=== PATIENT | female | born 1945 | race African-American/Black ===

== ENCOUNTER 2016-06-24 19:26 | Emergency (ER) | payer MEDICARE, MEDICAID ==
[~2016-06-24] VITALS: Ht 154.9 cm; Wt 54.0 kg
[~2016-06-24 19:26] MED LIST: CLON0.1T14 PO; FURO40TA5; LISI40TA4 PO; LORA0.5T2 PO; METO50TA5 PO; PARO20TA53 PO
[2016-06-24 20:48] LABS: BASOPHILS % 0.8 % (0.0-2.0); CHLORIDE 105 mEq/L (98-107); EOSINOPHILS % 1.4 % (0.0-5.0); MEAN CORPUSCULAR HEMOGLOBIN 29.8 pg (28.0-32.0); MEAN CORPUSCULAR HGB CONC 33.3 g/dL (31.0-37.0); MEAN CORPUSCULAR VOLUME 89.4 fL (81.0-99.0); MEAN PLATELET VOLUME 8.9 fl (7.4-10.4); MONOCYTES % 8.9 % (2.0-8.0); NEUTROPHILS % 64.9 % (40.0-76.0); PLATELET 233 x1000/uL (130-400); RED BLOOD CELL COUNT 4.69 mill/uL (4.2-5.4); RED CELL DISTRIBUTION WIDTH 14.2 % (11.6-14.6); WHITE BLOOD COUNT 8.5 x1000/uL (4.5-11.0)
[2016-06-24 20:53] LABS: INR 1.2; PARTIAL THROMBOPLASTIN TIME 26.7 sec (24.0-34.0); PROTHROMBIN TIME 12.4 sec
[2016-06-24 20:54] LABS: ALBUMIN 3.4 g/dL (3.4-5.0); ANION GAP 14; CALCIUM 9.3 mg/dL (8.5-10.1); CARBON DIOXIDE 25 mEq/L (21-32); INDEX HEMOLYSI 1 (1-3); INDEX ICTERIC 1 (1-4); INDEX LIPEMIC 1 (1-3); LIPASE 82 IU/L (73-393); UREA NITROGEN BLOOD 16 mg/dL (7-21)
[2016-06-24 21:00] LABS: ALANINE AMINOTRANSFERASE 40 IU/L (13-61); TROPONIN I < 0.02 ng/mL (0.00-0.04); eGFR 38 mL/min (>60)
[2016-06-24 22:30] LABS: CLARITY URINE CLOUDY (CLEAR); COLOR URINE YELLOW (YELLOW); GLUCOSE URINE NEGATIVE (NEGATIVE); KETONES URINE NEGATIVE (NEGATIVE); LEUKOCYTE ESTERASE URINE 3+ (NEGATIVE); NITRITE URINE NEGATIVE (NEGATIVE); OCCULT BLOOD URINE TRACE (NEGATIVE); PH URINE 5.5 (4.5-8.0); PROTEIN URINE NEGATIVE (NEGATIVE); SPECIFIC GRAVITY URINE 1.006 (1.005-1.030); UROBILINOGEN URINE 0.2 E.U./dL (0.2-1.0)
[2016-06-24 22:52] LABS: BACTERIA URINE 1+; RBC URINE 0-2 /hpf (0-2); SQUAMOUS EPITHELIAL CELL URINE 1+ /lpf (RARE/1+)
[2016-06-24 22:53] LABS: WBC URINE 15-25 /hpf (0-2)
[2016-06-24] MEDS ORDERED: LEVOFLOXACIN 500MG TABLET PO ONE (23:15)
[2016-06-24 23:31] VITALS: BP 135/66
== END 2016-06-24 23:33 | disposition home or self-care (01) ==
LOC: ER 19:27
DX: N39.0 Urinary tract infection, site not specified (principal); R42 Dizziness and giddiness; M79.671 Pain in right foot; M79.672 Pain in left foot; R51 Headache; R11.0 Nausea; M10.9 Gout, unspecified; J45.909 Unspecified asthma, uncomplicated; I10 Essential (primary) hypertension; Z90.710 Acquired absence of both cervix and uterus; Z90.49 Acquired absence of other specified parts of digestive tract; Z88.0 Allergy status to penicillin; Z88.2 Allergy status to sulfonamides; Z88.6 Allergy status to analgesic agent
CPT/HCPCS: 36415; 71010; 80053; 81001; 83690; 84484; 85025; 85610; 85730; 93005; 99285

== ENCOUNTER 2018-04-22 13:12 | Inpatient (IN) | payer MEDICARE, MEDICAID ==
[~2018-04-22] VITALS: Ht 167.6 cm; Wt 61.4 kg
[2018-04-22] VITALS (7 sets, daily range): BP systolic 80–113; BP diastolic 43–87
[~2018-04-22 13:12] MED LIST changes: +MELA3TAB PO; +METO-539 PO; -METO50TA5 PO; +MIRT15TA6 PO; +PARO-66 PO; -PARO20TA53 PO
[2018-04-22] MEDS ORDERED: LEVETIRACETAM 500MG PREMIX 100 ML IV ONE (17:15)
[2018-04-22] MEDS ORDERED: NICARDIPINE 100 MG in SODIUM CHLORIDE 0.9% 60 ML IV PRN (17:45)
[2018-04-22] MEDS ORDERED: DEXT 5%/LACTATED RINGERS 1,000 ML IV SCH (17:45)
[2018-04-22 17:55] LABS: BASOPHILS % 0.5 % (0.0-2.0); EOSINOPHILS % 0.6 % (0.0-5.0); HEMATOCRIT. 47.7 % (36.0-48.0); HEMOGLOBIN. 15.9 g/dL (12.0-16.0); LYMPHOCYTES % 18.2 % (20.0-50.0); MEAN CORPUSCULAR HEMOGLOBIN 30.6 pg (28.0-32.0); MEAN CORPUSCULAR VOLUME 91.8 fL (81.0-99.0); MEAN PLATELET VOLUME 9.1 fl (7.4-10.4); MONOCYTES % 9.2 % (2.0-8.0); NEUTROPHILS % 71.5 % (40.0-76.0); PLATELET 339 x1000/uL (130-400); RED BLOOD CELL COUNT 5.19 mill/uL (4.2-5.4); RED CELL DISTRIBUTION WIDTH 14.2 % (11.6-14.6)
[2018-04-22 18:04] LABS: CHLORIDE 99 mEq/L (98-107); INR 1.1; PARTIAL THROMBOPLASTIN TIME 26.3 sec (23.4-31.0); PROTHROMBIN TIME 10.9 sec (9.1-11.1)
[2018-04-22 18:11] LABS: ETHANOL BLOOD < 10 mg/dL
[2018-04-22] MEDS: DEXT 5%/LACTATED RINGERS 1,000 ML IV SCH (18:19)
[2018-04-22] MEDS ORDERED: ONDANSETRON HCL 4MG/2ML INJ IV PRN (21:21)
[2018-04-22] MEDS ORDERED: NITROGLYCERIN 0.4MG TABLET SL SL PRN (21:21)
[2018-04-22] MEDS ORDERED: ACETAMINOPHEN 325MG TABLET PO PRN (21:21)
[2018-04-22] MEDS: DEXAMETHASONE 4MG/ML 1ML VIAL IV SCH (23:31)
[2018-04-23] VITALS (36 sets, daily range): BP systolic 87–136; BP diastolic 51–94
[2018-04-23] MEDS: DEXAMETHASONE 4MG/ML 1ML VIAL IV SCH ×3 (05:37→17:20)
[2018-04-23] MEDS: DEXT 5%/LACTATED RINGERS 1,000 ML IV SCH ×2 (06:49→20:41)
[2018-04-23] MEDS ORDERED: LEVETIRACETAM 500MG PREMIX 100 ML IV SCH (09:00)
[2018-04-23] MEDS: LEVETIRACETAM 500MG in SODIUM CHLORIDE 0.9% 100ML IV SCH ×2 (09:17→20:41)
[2018-04-23] MEDS: PANTOPRAZOLE SODIUM 40 MG/VIAL IV SCH (09:18)
[2018-04-23 10:01] LABS: *AMPHETAMINES SCREEN URINE NEGATIVE (NEGATIVE)
[2018-04-23 10:02] LABS: *BARBITURATES SCREEN URINE NEGATIVE (NEGATIVE); *BENZODIAZEPINES SCREEN URINE NEGATIVE (NEGATIVE); *COCAINE SCREEN URINE NEGATIVE (NEGATIVE); METHADONE URINE SCREEN NEGATIVE (NEGATIVE); OPIATES URINE SCREEN NEGATIVE (NEGATIVE); PHENCYCLIDINE URINE SCREEN NEGATIVE (NEGATIVE)
[2018-04-23 10:03] LABS: CANNABINOID URINE SCREEN PRESUMTIVE POSITIVE (NEGATIVE)
[2018-04-23 10:17] LABS: CLARITY URINE CLEAR (CLEAR); COLOR URINE YELLOW (YELLOW); KETONES URINE NEGATIVE (NEGATIVE); LEUKOCYTE ESTERASE URINE 1+ (NEGATIVE); NITRITE URINE NEGATIVE (NEGATIVE); OCCULT BLOOD URINE TRACE (NEGATIVE); PROTEIN URINE NEGATIVE (NEGATIVE); SPECIFIC GRAVITY URINE 1.009 (1.005-1.030); UROBILINOGEN URINE 0.2 E.U./dL (0.2-1.0)
[2018-04-23] MEDS: MORPHINE SULFATE 4 MG/ML CPJ (NOT FOR IM USE) IV PRN (11:47)
[2018-04-23] MEDS ORDERED: CLONIDINE 0.1MG TABLET PO PRN (15:00)
[2018-04-24] VITALS (45 sets, daily range): BP systolic 113–178; BP diastolic 61–113
[2018-04-24] MEDS: DEXAMETHASONE 4MG/ML 1ML VIAL IV SCH ×4 (00:22→17:07)
[2018-04-24] MEDS: PANTOPRAZOLE SODIUM 40 MG/VIAL IV SCH (08:17)
[2018-04-24] MEDS: LEVETIRACETAM 500MG in SODIUM CHLORIDE 0.9% 100ML IV SCH ×2 (08:17→22:07)
[2018-04-24] MEDS: MORPHINE SULFATE 4 MG/ML CPJ (NOT FOR IM USE) IV PRN ×2 (11:15→17:29)
[2018-04-24 12:10] LABS: BASOPHILS % 0.2 % (0.0-2.0); HEMATOCRIT. 37.8 % (36.0-48.0); HEMOGLOBIN. 12.5 g/dL (12.0-16.0); LYMPHOCYTES % 8.9 % (20.0-50.0); MEAN CORPUSCULAR HEMOGLOBIN 30.5 pg (28.0-32.0); MEAN CORPUSCULAR VOLUME 92.5 fL (81.0-99.0); MEAN PLATELET VOLUME 8.6 fl (7.4-10.4); MONOCYTES % 4.3 % (2.0-8.0); NEUTROPHILS % 86.6 % (40.0-76.0); PLATELET 263 x1000/uL (130-400); RED BLOOD CELL COUNT 4.09 mill/uL (4.2-5.4); RED CELL DISTRIBUTION WIDTH 13.8 % (11.6-14.6)
[2018-04-24 12:22] LABS: CHLORIDE 112 mEq/L (98-107)
[2018-04-24] MEDS: DEXT 5%/LACTATED RINGERS 1,000 ML IV SCH (12:24)
[2018-04-24] MEDS: AMLODIPINE 5MG TABLET PO SCH ×2 (12:24→22:04)
[2018-04-25] MEDS: DEXAMETHASONE 4MG/ML 1ML VIAL IV SCH ×5 (03:11→23:29)
[2018-04-25] MEDS: DEXT 5%/LACTATED RINGERS 1,000 ML IV SCH ×2 (03:12→12:39)
[2018-04-25 04:00] VITALS: BP_SYST 131; BP_SYST 157; BP_DIAS 61; BP_DIAS 73
[2018-04-25 08:00] VITALS: BP 146/83
[2018-04-25] MEDS: PANTOPRAZOLE SODIUM 40 MG/VIAL IV SCH (08:21)
[2018-04-25] MEDS: LEVETIRACETAM 500MG in SODIUM CHLORIDE 0.9% 100ML IV SCH ×2 (08:21→23:21)
[2018-04-25] MEDS: MORPHINE SULFATE 4 MG/ML CPJ (NOT FOR IM USE) IV PRN ×2 (08:23→15:03)
[2018-04-25] MEDS: AMLODIPINE 5MG TABLET PO SCH ×2 (08:23→23:20)
[2018-04-25] MEDS: LISINOPRIL 20MG TABLET PO SCH ×2 (10:36→23:20)
[2018-04-25 12:00] VITALS: BP 140/80
[2018-04-25 16:00] VITALS: BP 146/82
[2018-04-25 20:00] VITALS: BP 140/57
[2018-04-26] VITALS: BP 131/87
[2018-04-26 04:00] VITALS: BP 147/83
[2018-04-26] MEDS: DEXAMETHASONE 4MG/ML 1ML VIAL IV SCH ×4 (07:45→23:51)
[2018-04-26 08:00] VITALS: BP 161/76
[2018-04-26] MEDS: AMLODIPINE 5MG TABLET PO SCH ×2 (09:31→21:31)
[2018-04-26] MEDS: PANTOPRAZOLE SODIUM 40 MG/VIAL IV SCH (09:31)
[2018-04-26] MEDS: LISINOPRIL 20MG TABLET PO SCH ×2 (09:32→21:32)
[2018-04-26] MEDS: LEVETIRACETAM 500MG in SODIUM CHLORIDE 0.9% 100ML IV SCH ×2 (09:38→21:31)
[2018-04-26] MEDS ORDERED: HYDR25TA MT (11:31)
[2018-04-26] MEDS ORDERED: POTA10CA42 MT (11:31)
[2018-04-26] MEDS ORDERED: LORA5TAB8 MT (11:31)
[2018-04-26 12:00] VITALS: BP 138/81
[2018-04-26] MEDS: HYDRALAZINE HCL 50MG TABLET PO SCH ×2 (15:19→23:51)
[2018-04-26] MEDS: MORPHINE SULFATE 4 MG/ML CPJ (NOT FOR IM USE) IV PRN (15:34)
[2018-04-26 16:00] VITALS: BP 147/81
[2018-04-26 20:00] VITALS: BP 150/92
[2018-04-26] MEDS: METOPROLOL TARTRATE 25MG TABLET PO SCH (21:33)
[2018-04-27] VITALS: BP 137/64
[2018-04-27 04:00] VITALS: BP 147/81
[2018-04-27] MEDS: DEXAMETHASONE 4MG/ML 1ML VIAL IV SCH (07:03)
[2018-04-27] MEDS: HYDRALAZINE HCL 50MG TABLET PO SCH (07:04)
[2018-04-27 08:00] VITALS: BP 158/78
[2018-04-27] MEDS: PANTOPRAZOLE SODIUM 40 MG/VIAL IV SCH (09:31)
[2018-04-27] MEDS: LEVETIRACETAM 500MG in SODIUM CHLORIDE 0.9% 100ML IV SCH (09:31)
[2018-04-27] MEDS: AMLODIPINE 5MG TABLET PO SCH (09:32)
[2018-04-27] MEDS: LISINOPRIL 20MG TABLET PO SCH (09:32)
[2018-04-27] MEDS: METOPROLOL TARTRATE 25MG TABLET PO SCH (09:32)
[2018-04-27 11:24] VITALS: BP 158/78
[2018-04-27 12:00] VITALS: BP 152/68
[2018-04-27] MEDS ORDERED: ATORVASTATIN CALCIUM 10MG TABLET PO SCH (21:00)
== END 2018-04-27 12:13 | disposition home or self-care (01) | DRG 64 ==
LOC: ER 13:19 → MICUSO 17:27 → EDBEDREQTM 17:28 → SUPCPDRO 18:19 → ENRESERV 19:42 → MICUSO 04-23 08:00 → 6EST 04-24 16:15
PROVIDERS: ADMIT Internal Medicine; ATTEND Internal Medicine
PROC: 4A00X4Z Measurement of Central Nervous Electrical Activity, External Approach (ICD-10-PCS; principal; 2018-04-24)
DX: I61.9 Nontraumatic intracerebral hemorrhage, unspecified (principal); G93.41 Metabolic encephalopathy; I16.1 Hypertensive emergency; N17.9 Acute kidney failure, unspecified; N18.9 Chronic kidney disease, unspecified; J44.9 Chronic obstructive pulmonary disease, unspecified; E83.52 Hypercalcemia; F32.9 Major depressive disorder, single episode, unspecified; R47.1 Dysarthria and anarthria; M79.672 Pain in left foot; I12.9 Hypertensive chronic kidney disease with stage 1 through stage 4 chronic kidney disease, or unspecified chronic kidney disease; F17.210 Nicotine dependence, cigarettes, uncomplicated; F12.10 Cannabis abuse, uncomplicated; M47.9 Spondylosis, unspecified; R13.10 Dysphagia, unspecified; Z90.49 Acquired absence of other specified parts of digestive tract; Z90.710 Acquired absence of both cervix and uterus; Z88.0 Allergy status to penicillin; Z88.2 Allergy status to sulfonamides; Z88.6 Allergy status to analgesic agent
CPT/HCPCS: 36415; 70544; 70553; 71045; 72131; 73630; 80061; 80305; 83036; 83880; 84484; 92523; 92610; 93005; 93306; 93970; 96365; 96375; 97116; 97162; 97166; 97530; 97535; 99291; C9113; J1100; J1953; J2270; J2405; J7040; J7050

== ENCOUNTER 2018-05-04 19:25 | Inpatient (IN) | payer MEDICARE, MEDICAID ==
[~2018-05-04] VITALS: Ht 154.9 cm; Wt 61.2 kg
[~2018-05-04 19:25] MED LIST changes: +HYDR25TA MT; +LORA5TAB8 MT; +POTA10CA42 MT
[2018-05-04] MEDS ORDERED: ONDANSETRON HCL 4MG/2ML INJ IV STA (20:12)
[2018-05-04 22:03] LABS: BASOPHILS % 0.7 % (0.0-2.0); EOSINOPHILS % 0.8 % (0.0-5.0); HEMATOCRIT. 47.9 % (36.0-48.0); HEMOGLOBIN. 15.7 g/dL (12.0-16.0); LYMPHOCYTES % 41.2 % (20.0-50.0); MEAN CORPUSCULAR HEMOGLOBIN 30.4 pg (28.0-32.0); MEAN CORPUSCULAR VOLUME 92.9 fL (81.0-99.0); MEAN PLATELET VOLUME 9.8 fl (7.4-10.4); MONOCYTES % 8.1 % (2.0-8.0); NEUTROPHILS % 49.2 % (40.0-76.0); PLATELET 260 x1000/uL (130-400); RED BLOOD CELL COUNT 5.16 mill/uL (4.2-5.4); RED CELL DISTRIBUTION WIDTH 13.9 % (11.6-14.6)
[2018-05-04 22:05] LABS: CHLORIDE 101 mEq/L (98-107)
[2018-05-04 22:07] LABS: INR 1.1; PROTHROMBIN TIME 10.7 sec (9.1-11.1)
[2018-05-04 22:10] LABS: ETHANOL BLOOD < 10 mg/dL
[2018-05-05 07:55] LABS: CLARITY URINE CLOUDY (CLEAR); COLOR URINE YELLOW (YELLOW); SPECIFIC GRAVITY URINE 1.016 (1.005-1.030)
[2018-05-05 07:56] LABS: KETONES URINE TRACE (NEGATIVE); OCCULT BLOOD URINE TRACE (NEGATIVE); PROTEIN URINE 1+ (NEGATIVE)
[2018-05-05 07:57] LABS: LEUKOCYTE ESTERASE URINE 3+ (NEGATIVE); NITRITE URINE NEGATIVE (NEGATIVE); UROBILINOGEN URINE 0.2 E.U./dL (0.2-1.0)
[2018-05-05 08:15] LABS: *AMPHETAMINES SCREEN URINE NEGATIVE (NEGATIVE); *BARBITURATES SCREEN URINE NEGATIVE (NEGATIVE); *BENZODIAZEPINES SCREEN URINE NEGATIVE (NEGATIVE); *COCAINE SCREEN URINE NEGATIVE (NEGATIVE); METHADONE URINE SCREEN NEGATIVE (NEGATIVE); OPIATES URINE SCREEN NEGATIVE (NEGATIVE)
[2018-05-05 08:16] LABS: CANNABINOID URINE SCREEN PRESUMTIVE POSITIVE (NEGATIVE); PHENCYCLIDINE URINE SCREEN NEGATIVE (NEGATIVE)
[2018-05-05 09:56] VITALS: BP 90/58
[2018-05-05 10:19] VITALS: BP 90/58
[2018-05-05] MEDS: IPRATROPIUM/ALBUTEROL 0.5-3(2.5)MG/3ML NEB HHN SCH ×2 (10:25→23:40)
[2018-05-05] MEDS ORDERED: IPRATROPIUM/ALBUTEROL 0.5-3(2.5)MG/3ML NEB INH PRN (11:00)
[2018-05-05] MEDS ORDERED: FAMOTIDINE 20MG/2ML VIAL IV SCH (11:00)
[2018-05-05] MEDS ORDERED: DEXTROSE 50% WATER 50ML SYRINGE IV PRN (11:30)
[2018-05-05 12:00] VITALS: BP 115/82
[2018-05-05] MEDS: DOCUSATE SODIUM 250MG CAPSULE PO SCH (12:05)
[2018-05-05] MEDS: ENOXAPARIN 30MG/0.3ML SYR SUBCUT SCH (12:06)
[2018-05-05] MEDS: INSULIN LISPRO 100 UNITS/ML SUBCUT SCH ×3 (13:10→21:00)
[2018-05-05] MEDS: BLOOD SUGAR DIAGNOSTIC STRIP TEST SCH ×3 (13:13→21:13)
[2018-05-05] MEDS: LEVOFLOXACIN 250MG PREMIX 50 ML IV SCH (13:23)
[2018-05-05 16:00] VITALS: BP 88/48
[2018-05-05 18:18] LABS: CREATINE KINASE MB FRACTION 4.4 ng/mL (0.5-3.6)
[2018-05-05 20:00] VITALS: BP 89/41
[2018-05-06] VITALS: BP 90/49
[2018-05-06] MEDS: IPRATROPIUM/ALBUTEROL 0.5-3(2.5)MG/3ML NEB HHN SCH ×6 (00:18→23:48)
[2018-05-06 04:00] VITALS: BP 89/40
[2018-05-06 07:17] LABS: BASOPHILS % 0.3 % (0.0-2.0); EOSINOPHILS % 0.7 % (0.0-5.0); HEMATOCRIT. 42.6 % (36.0-48.0); HEMOGLOBIN. 14.1 g/dL (12.0-16.0); LYMPHOCYTES % 36.6 % (20.0-50.0); MEAN CORPUSCULAR HEMOGLOBIN 30.4 pg (28.0-32.0); MEAN CORPUSCULAR VOLUME 91.9 fL (81.0-99.0); MEAN PLATELET VOLUME 9.1 fl (7.4-10.4); NEUTROPHILS % 53.4 % (40.0-76.0); PLATELET 226 x1000/uL (130-400); RED BLOOD CELL COUNT 4.64 mill/uL (4.2-5.4); RED CELL DISTRIBUTION WIDTH 13.5 % (11.6-14.6)
[2018-05-06 07:18] LABS: CHLORIDE 104 mEq/L (98-107)
[2018-05-06 07:34] LABS: CREATINE KINASE MB FRACTION 4.9 ng/mL (0.5-3.6)
[2018-05-06] MEDS: BLOOD SUGAR DIAGNOSTIC STRIP TEST SCH ×4 (07:57→21:00)
[2018-05-06 08:00] VITALS: BP 136/71
[2018-05-06] MEDS: INSULIN LISPRO 100 UNITS/ML SUBCUT SCH ×4 (08:10→21:00)
[2018-05-06] MEDS: ONDANSETRON HCL 4MG/2ML INJ IV PRN (09:08)
[2018-05-06] MEDS: DOCUSATE SODIUM 250MG CAPSULE PO SCH (09:08)
[2018-05-06] MEDS: ENOXAPARIN 30MG/0.3ML SYR SUBCUT SCH (09:08)
[2018-05-06] MEDS ORDERED: POTASSIUM CHLORIDE 20MEQ TABLET SR PO NR (10:00)
[2018-05-06] MEDS: PANTOPRAZOLE SODIUM 40 MG/VIAL IV SCH (11:18)
[2018-05-06 11:48] VITALS: BP 86/52
[2018-05-06 12:00] VITALS: BP 86/52
[2018-05-06] MEDS ORDERED: DEXT 5%/0.45% NACL KCL 20MEQ/L 1,000 ML IV SCH (12:00)
[2018-05-06 16:00] VITALS: BP 87/49
[2018-05-06] MEDS ORDERED: SODIUM CHLORIDE 0.9% 1,000 ML IV SCH (23:30)
[2018-05-07 00:38] VITALS: BP 90/40
[2018-05-07 06:52] LABS: BASOPHILS % 0.5 % (0.0-2.0); EOSINOPHILS % 0.9 % (0.0-5.0); HEMATOCRIT. 41.2 % (36.0-48.0); HEMOGLOBIN. 13.7 g/dL (12.0-16.0); LYMPHOCYTES % 32.1 % (20.0-50.0); MEAN CORPUSCULAR HEMOGLOBIN 30.5 pg (28.0-32.0); MEAN CORPUSCULAR VOLUME 91.9 fL (81.0-99.0); MEAN PLATELET VOLUME 9.1 fl (7.4-10.4); NEUTROPHILS % 58.5 % (40.0-76.0); PLATELET 222 x1000/uL (130-400); RED BLOOD CELL COUNT 4.48 mill/uL (4.2-5.4); RED CELL DISTRIBUTION WIDTH 13.6 % (11.6-14.6)
[2018-05-07 08:00] VITALS: BP 84/64
[2018-05-07] MEDS: INSULIN LISPRO 100 UNITS/ML SUBCUT SCH ×4 (08:10→21:52)
[2018-05-07] MEDS: BLOOD SUGAR DIAGNOSTIC STRIP TEST SCH ×4 (08:11→21:18)
[2018-05-07] MEDS: PANTOPRAZOLE SODIUM 40 MG/VIAL IV SCH (09:47)
[2018-05-07] MEDS: DOCUSATE SODIUM 250MG CAPSULE PO SCH (09:47)
[2018-05-07] MEDS: ENOXAPARIN 30MG/0.3ML SYR SUBCUT SCH (09:48)
[2018-05-07 12:00] VITALS: BP 95/62
[2018-05-07] MEDS: SODIUM CHLORIDE 0.45% 1,000 ML IV SCH (12:12)
[2018-05-07] MEDS: LEVOFLOXACIN 250MG PREMIX 50 ML IV SCH (12:13)
[2018-05-07 16:00] VITALS: BP 88/60
[2018-05-07 20:00] VITALS: BP 98/59
[2018-05-07] MEDS: IPRATROPIUM/ALBUTEROL 0.5-3(2.5)MG/3ML NEB HHN SCH (20:20)
[2018-05-07] MEDS ORDERED: METRONIDAZOLE 500 MG PREMIX 100 ML IV ONE (22:45)
[2018-05-07 22:52] LABS: PHOSPHORUS 3.6 mg/dL (2.5-4.9)
[2018-05-08] VITALS: BP 98/56
[2018-05-08] MEDS ORDERED: CEFTRIAXONE 1 G PREMIX 50 ML IV SCH
[2018-05-08] MEDS: SODIUM CHLORIDE 0.45% 1,000 ML IV SCH ×3 (00:06→22:02)
[2018-05-08] MEDS ORDERED: METRONIDAZOLE 500 MG PREMIX 100 ML IV SCH (01:00)
[2018-05-08] MEDS: IPRATROPIUM/ALBUTEROL 0.5-3(2.5)MG/3ML NEB HHN SCH ×6 (01:36→20:21)
[2018-05-08 04:00] VITALS: BP 108/58
[2018-05-08] MEDS: ACETAMINOPHEN 325MG TABLET PO PRN ×2 (06:21→16:06)
[2018-05-08 06:46] LABS: BASOPHILS % 0.4 % (0.0-2.0); EOSINOPHILS % 1.2 % (0.0-5.0); HEMATOCRIT. 38.2 % (36.0-48.0); HEMOGLOBIN. 12.9 g/dL (12.0-16.0); MEAN CORPUSCULAR HEMOGLOBIN 30.9 pg (28.0-32.0); MEAN CORPUSCULAR VOLUME 92.1 fL (81.0-99.0); MEAN PLATELET VOLUME 8.9 fl (7.4-10.4); MONOCYTES % 8.9 % (2.0-8.0); NEUTROPHILS % 56.5 % (40.0-76.0); PLATELET 189 x1000/uL (130-400); RED BLOOD CELL COUNT 4.15 mill/uL (4.2-5.4); RED CELL DISTRIBUTION WIDTH 13.4 % (11.6-14.6)
[2018-05-08] MEDS: BLOOD SUGAR DIAGNOSTIC STRIP TEST SCH ×4 (07:46→21:00)
[2018-05-08] MEDS: INSULIN LISPRO 100 UNITS/ML SUBCUT SCH ×4 (07:46→21:00)
[2018-05-08 08:00] VITALS: BP 102/65
[2018-05-08] MEDS: DOCUSATE SODIUM 250MG CAPSULE PO SCH (08:45)
[2018-05-08] MEDS: ENOXAPARIN 30MG/0.3ML SYR SUBCUT SCH (08:45)
[2018-05-08] MEDS: PANTOPRAZOLE SODIUM 40 MG/VIAL IV SCH (08:45)
[2018-05-08 12:00] VITALS: BP 115/66
[2018-05-08 16:00] VITALS: BP 100/56
[2018-05-08] MEDS: METRONIDAZOLE 500 MG PREMIX 100 ML IV SCH ×2 (17:31→22:53)
[2018-05-08 20:00] VITALS: BP 102/67
[2018-05-09] VITALS: BP 93/67
[2018-05-09] MEDS: IPRATROPIUM/ALBUTEROL 0.5-3(2.5)MG/3ML NEB HHN SCH ×2 (00:20→08:05)
[2018-05-09 04:00] VITALS: BP 91/64
[2018-05-09] MEDS: METRONIDAZOLE 500 MG PREMIX 100 ML IV SCH ×2 (05:30→15:40)
[2018-05-09] MEDS: BLOOD SUGAR DIAGNOSTIC STRIP TEST SCH ×2 (05:30→12:47)
[2018-05-09 08:00] VITALS: BP 119/85
[2018-05-09] MEDS: INSULIN LISPRO 100 UNITS/ML SUBCUT SCH ×2 (08:10→12:47)
[2018-05-09] MEDS ORDERED: FAMOTIDINE 20MG TABLET PO SCH (09:00)
[2018-05-09] MEDS: DOCUSATE SODIUM 250MG CAPSULE PO SCH (09:06)
[2018-05-09] MEDS: ENOXAPARIN 30MG/0.3ML SYR SUBCUT SCH (09:07)
[2018-05-09] MEDS: ACETAMINOPHEN 325MG TABLET PO PRN ×2 (09:15→15:39)
[2018-05-09] MEDS: ONDANSETRON HCL 4MG/2ML INJ IV PRN (10:31)
[2018-05-09] MEDS: SODIUM CHLORIDE 0.45% 1,000 ML IV SCH ×2 (10:34→10:37)
[2018-05-09 12:00] VITALS: BP 116/80
[2018-05-09] MEDS: LEVOFLOXACIN 250MG PREMIX 50 ML IV SCH (12:47)
[2018-05-09 16:39] VITALS: BP 132/78
[2018-05-09 19:34] VITALS: BP 119/58
== END 2018-05-09 17:15 | DRG 871 ==
LOC: ER 19:25 → EDBEDREQTM 05-05 02:23 → EDBEDREQ 05-05 02:23 → 7WST 05-05 08:10 → ENRESERV 05-05 08:10
PROVIDERS: ADMIT Internal Medicine Geriatric Medicine; ATTEND Internal Medicine Geriatric Medicine
DX: A41.9 Sepsis, unspecified organism (principal); N17.0 Acute kidney failure with tubular necrosis; N39.0 Urinary tract infection, site not specified; E44.0 Moderate protein-calorie malnutrition; E87.6 Hypokalemia; J44.9 Chronic obstructive pulmonary disease, unspecified; E86.0 Dehydration; N18.9 Chronic kidney disease, unspecified; F10.21 Alcohol dependence, in remission; F12.10 Cannabis abuse, uncomplicated; F17.210 Nicotine dependence, cigarettes, uncomplicated; F43.20 Adjustment disorder, unspecified; Z60.2 Problems related to living alone; I12.9 Hypertensive chronic kidney disease with stage 1 through stage 4 chronic kidney disease, or unspecified chronic kidney disease; N27.1 Small kidney, bilateral; Z79.899 Other long term (current) drug therapy; Z90.49 Acquired absence of other specified parts of digestive tract; Z90.710 Acquired absence of both cervix and uterus; Z68.25 Body mass index [BMI] 25.0-25.9, adult; Z88.0 Allergy status to penicillin; Z88.2 Allergy status to sulfonamides; Z88.8 Allergy status to other drugs, medicaments and biological substances; I69.398 Other sequelae of cerebral infarction
CPT/HCPCS: 36415; 71045; 76770; 80048; 80305; 80320; 82553; 82962; 83605; 83880; 83970; 84100; 84484; 86140; 93005; 93970; 94640; 96374; 97162; 99285; C9113; J1650; J1815; J1956; J2405; J3490; J7040; J7050; J7620; A4315; G0480

== ENCOUNTER 2018-06-05 12:12 | Inpatient (IN) | payer MEDICARE, MEDICAID ==
[~2018-06-05] VITALS: Ht 165.1 cm; Wt 50.8 kg
[~2018-06-05 12:12] MED LIST changes: -CLON0.1T14 PO
[2018-06-05 12:59] LABS: BASOPHILS % 1.2 % (0.0-2.0); EOSINOPHILS % 2.3 % (0.0-5.0); HEMATOCRIT. 42.8 % (36.0-48.0); HEMOGLOBIN. 14.2 g/dL (12.0-16.0); MEAN CORPUSCULAR HEMOGLOBIN 30.2 pg (28.0-32.0); MEAN CORPUSCULAR VOLUME 91.2 fL (81.0-99.0); MEAN PLATELET VOLUME 8.1 fl (7.4-10.4); NEUTROPHILS % 59.5 % (40.0-76.0); PLATELET 294 x1000/uL (130-400)
[2018-06-05 13:06] LABS: CHLORIDE 106 mEq/L (98-107)
[2018-06-05 13:14] LABS: INR 1.1
[2018-06-05] MEDS ORDERED: SODIUM CHLORIDE 0.9% 500 ML IV ONE (14:42)
[2018-06-05] MEDS ORDERED: CLONIDINE 0.1MG TABLET PO ONE (15:00)
[2018-06-05 15:08] LABS: CLARITY URINE CLEAR (CLEAR); COLOR URINE YELLOW (YELLOW); KETONES URINE NEGATIVE (NEGATIVE); LEUKOCYTE ESTERASE URINE NEGATIVE (NEGATIVE); NITRITE URINE NEGATIVE (NEGATIVE); OCCULT BLOOD URINE NEGATIVE (NEGATIVE); PH URINE 6.5 (4.5-8.0); PROTEIN URINE NEGATIVE (NEGATIVE); SPECIFIC GRAVITY URINE 1.005 (1.005-1.030); UROBILINOGEN URINE 0.2 E.U./dL (0.2-1.0)
[2018-06-05] MEDS ORDERED: LORAZEPAM 2MG/ML CPJ IV PRN (19:15)
[2018-06-05] MEDS ORDERED: DOCUSATE SODIUM 100MG CAPSULE PO PRN (19:15)
[2018-06-05] MEDS ORDERED: HYDROCODONE/ACETAMINOPHEN 5/325MG TABLET PO PRN (19:15)
[2018-06-05] MEDS ORDERED: ONDANSETRON HCL 4MG/2ML INJ IV PRN (19:15)
[2018-06-05] MEDS ORDERED: DIPHENHYDRAMINE 50MG/ML VIAL IV PRN (19:15)
[2018-06-05] MEDS ORDERED: GUAIFENESIN 200MG/10ML SUGAR FREE UDC PO PRN (19:15)
[2018-06-05] MEDS ORDERED: IPRATROPIUM/ALBUTEROL 0.5-3(2.5)MG/3ML NEB INH PRN (19:15)
[2018-06-05] MEDS ORDERED: CLONIDINE 0.1MG TABLET PO PRN (19:15)
[2018-06-05] MEDS ORDERED: HYDROMORPHONE HCL/PF 2MG/ML CPJ IV PRN (19:15)
[2018-06-05] MEDS ORDERED: MAGNESIUM/ALUMINUM HYDROXIDE/SIMETHICONE 30ML UDC PO PRN (19:15)
[2018-06-05] MEDS ORDERED: ACETAMINOPHEN 325MG TABLET PO PRN (19:15)
[2018-06-05 20:34] LABS: CHLORIDE 106 mEq/L (98-107)
[2018-06-06] VITALS (7 sets, daily range): BP systolic 123–156; BP diastolic 61–97
[2018-06-06] MEDS ORDERED: NA PHOS,M-B/NA PHOS,DI-BA ENEMA 118ML PR PRN (01:59)
[2018-06-06 06:29] LABS: CHLORIDE 108 mEq/L (98-107)
[2018-06-06 06:35] LABS: EOSINOPHILS % 3.6 % (0.0-5.0); HEMATOCRIT. 43.3 % (36.0-48.0); HEMOGLOBIN. 14.1 g/dL (12.0-16.0); MEAN CORPUSCULAR HEMOGLOBIN 30.2 pg (28.0-32.0); MEAN CORPUSCULAR VOLUME 92.6 fL (81.0-99.0); MONOCYTES % 10.9 % (2.0-8.0); NEUTROPHILS % 52.5 % (40.0-76.0); PLATELET 292 x1000/uL (130-400); RED BLOOD CELL COUNT 4.68 mill/uL (4.2-5.4); RED CELL DISTRIBUTION WIDTH 14.2 % (11.6-14.6)
[2018-06-06 06:39] LABS: LDL CHOLESTEROL 108 mg/dL (5-100); T4 FREE 1.16 ng/dL (0.76-1.46)
[2018-06-06 06:40] LABS: HDL CHOLESTEROL 43 mg/dL (40-59)
[2018-06-06] MEDS: ASPIRIN 81MG EC TABLET PO SCH (09:00)
[2018-06-06] MEDS: METOPROLOL TARTRATE 25MG TABLET PO SCH ×2 (09:00→22:01)
[2018-06-06] MEDS: AMLODIPINE 10MG TABLET PO SCH (09:00)
[2018-06-06] MEDS: LISINOPRIL 20MG TABLET PO SCH (09:00)
[2018-06-07 04:00] VITALS: BP 104/56
[2018-06-07 08:00] VITALS: BP 136/90
[2018-06-07] MEDS: METOPROLOL TARTRATE 25MG TABLET PO SCH (10:18)
[2018-06-07] MEDS: AMLODIPINE 10MG TABLET PO SCH (10:19)
[2018-06-07] MEDS: ASPIRIN 81MG EC TABLET PO SCH (10:19)
[2018-06-07] MEDS: LISINOPRIL 20MG TABLET PO SCH (10:20)
[2018-06-07 12:00] VITALS: BP_SYST 129; BP_SYST 136; BP_DIAS 75; BP_DIAS 90
== END 2018-06-07 16:30 | disposition home or self-care (01) | DRG 305 ==
LOC: ER 12:12 → 6WST 17:36 → EDBEDREQTM 17:38 → EDBEDREQ 17:38 → ENRESERV 21:37
PROVIDERS: ADMIT Internal Medicine; ATTEND Internal Medicine
DX: I16.1 Hypertensive emergency (principal); I69.354 Hemiplegia and hemiparesis following cerebral infarction affecting left non-dominant side; I10 Essential (primary) hypertension; I25.10 Atherosclerotic heart disease of native coronary artery without angina pectoris; M19.90 Unspecified osteoarthritis, unspecified site; F41.9 Anxiety disorder, unspecified; E78.00 Pure hypercholesterolemia, unspecified; R74.0 Nonspecific elevation of levels of transaminase and lactic acid dehydrogenase [LDH]; F32.9 Major depressive disorder, single episode, unspecified; F10.21 Alcohol dependence, in remission; F17.200 Nicotine dependence, unspecified, uncomplicated; J44.9 Chronic obstructive pulmonary disease, unspecified; Z79.899 Other long term (current) drug therapy; Z82.49 Family history of ischemic heart disease and other diseases of the circulatory system; Z90.49 Acquired absence of other specified parts of digestive tract; Z90.710 Acquired absence of both cervix and uterus; Z88.0 Allergy status to penicillin; Z88.2 Allergy status to sulfonamides; Z88.9 Allergy status to unspecified drugs, medicaments and biological substances
CPT/HCPCS: 36415; 71045; 80048; 80061; 84439; 84443; 84484; 93005; 93306; 96360; 96361; 99285; J7030

== ENCOUNTER 2019-02-20 07:14 | Emergency (ER) | payer MEDICARE, MEDICAID ==
[~2019-02-20] VITALS: Ht 162.6 cm; Wt 52.0 kg
[2019-02-20] MEDS ORDERED: ACETAMINOPHEN 325MG TABLET PO ONE (07:45)
[2019-02-20] MEDS ORDERED: OXYCODONE HCL/ACETAMINOPHEN 5/325MG TABLET PO ONE (10:45)
[2019-02-20 12:45] VITALS: BP 129/77
== END 2019-02-20 12:45 | disposition home or self-care (01) ==
LOC: ER 07:59
DX: M25.572 Pain in left ankle and joints of left foot (principal); M25.512 Pain in left shoulder; E78.00 Pure hypercholesterolemia, unspecified; I10 Essential (primary) hypertension; F12.10 Cannabis abuse, uncomplicated; J44.9 Chronic obstructive pulmonary disease, unspecified; I69.354 Hemiplegia and hemiparesis following cerebral infarction affecting left non-dominant side; Z88.0 Allergy status to penicillin; Z88.6 Allergy status to analgesic agent; Z88.2 Allergy status to sulfonamides; Z90.49 Acquired absence of other specified parts of digestive tract; Z90.710 Acquired absence of both cervix and uterus; W18.2XXA Fall in (into) shower or empty bathtub, initial encounter; Y93.E9 Activity, other interior property and clothing maintenance; Y92.012 Bathroom of single-family (private) house as the place of occurrence of the external cause
CPT/HCPCS: 71046; 72170; 73030; 73610; 73630; 99283

== ENCOUNTER 2019-09-24 16:35 | Inpatient (IN) | payer MEDICARE, MEDICAID ==
[~2019-09-24] VITALS: Ht 154.9 cm; Wt 58.3 kg
[~2019-09-24 16:35] MED LIST changes: -MELA3TAB PO; +MELA3TAB63 PO
[2019-09-24] MEDS ORDERED: SODIUM CHLORIDE 0.9% 1000ML BAG (SEPSIS BOLUS) IV ONE (17:00)
[2019-09-24 17:26] LABS: BASOPHILS % 0.7 % (0.0-2.0); EOSINOPHILS % 0.6 % (0.0-5.0); HEMATOCRIT. 37.8 % (36.0-48.0); HEMOGLOBIN. 12.5 g/dL (12.0-16.0); LYMPHOCYTES % 16.5 % (20.0-50.0); MEAN CORPUSCULAR HEMOGLOBIN 29.9 pg (28.0-32.0); MEAN CORPUSCULAR VOLUME 90.3 fL (81.0-99.0); MEAN PLATELET VOLUME 8.5 fl (7.4-10.4); MONOCYTES % 10.1 % (2.0-8.0); NEUTROPHILS % 72.1 % (40.0-76.0); PLATELET 312 x1000/uL (130-400); RED BLOOD CELL COUNT 4.19 mill/uL (4.2-5.4); RED CELL DISTRIBUTION WIDTH 13.6 % (11.6-14.6)
[2019-09-24 17:31] LABS: CHLORIDE 104 mEq/L (98-107)
[2019-09-24 17:34] LABS: INR 1.1; PROTHROMBIN TIME 11.5 sec (9.6-11.0)
[2019-09-24] MEDS ORDERED: LEVOFLOXACIN 500MG PREMIX 100 ML IV ONE (18:45)
[2019-09-24] MEDS ORDERED: MORPHINE SULFATE 4 MG/ML CPJ (NOT FOR IM USE) IV ONE (20:00)
[2019-09-24] MEDS ORDERED: KCL 20MEQ/100ML PREMIX 100 ML IV ONE (20:30)
[2019-09-24 20:44] LABS: CLARITY URINE CLEAR (CLEAR); COLOR URINE YELLOW (YELLOW); KETONES URINE NEGATIVE (NEGATIVE); LEUKOCYTE ESTERASE URINE 1+ (NEGATIVE); NITRITE URINE NEGATIVE (NEGATIVE); OCCULT BLOOD URINE NEGATIVE (NEGATIVE); PH URINE 5.5 (4.5-8.0); PROTEIN URINE 1+ (NEGATIVE); SPECIFIC GRAVITY URINE 1.014 (1.005-1.030)
[2019-09-24] MEDS ORDERED: ONDANSETRON HCL 4MG/2ML INJ IV PRN (20:45)
[2019-09-24] MEDS ORDERED: HYDRALAZINE 20MG/ML VIAL IV PRN (20:45)
[2019-09-24] MEDS ORDERED: LORAZEPAM 2MG/ML CPJ IV PRN (20:45)
[2019-09-24] MEDS ORDERED: MAGNESIUM/ALUMINUM HYDROXIDE/SIMETHICONE 30ML UDC PO PRN (20:45)
[2019-09-24] MEDS ORDERED: DIPHENHYDRAMINE 50MG/ML VIAL IV PRN (20:45)
[2019-09-24] MEDS ORDERED: DOCUSATE SODIUM 100MG CAPSULE PO PRN (20:45)
[2019-09-24] MEDS ORDERED: GUAIFENESIN 200MG/10ML SUGAR FREE UDC PO PRN (20:45)
[2019-09-24] MEDS ORDERED: MORPHINE SULFATE 2 MG/ML CPJ (NOT FOR IM USE) IV PRN (20:45)
[2019-09-24] MEDS ORDERED: CLONIDINE 0.1MG TABLET PO PRN (20:45)
[2019-09-24] MEDS ORDERED: IPRATROPIUM/ALBUTEROL 0.5-3(2.5)MG/3ML NEB HHN PRN (20:45)
[2019-09-24] MEDS: ENOXAPARIN 40MG/0.4ML SYR SUBCUT SCH (21:49)
[2019-09-24] MEDS: SODIUM CHLORIDE 0.9% INJ 3ML FLUSH IVF SCH (22:15)
[2019-09-25] VITALS (7 sets, daily range): BP systolic 96–142; BP diastolic 33–70
[2019-09-25] MEDS: ACETAMINOPHEN 325MG TABLET PO PRN (03:54)
[2019-09-25] MEDS: HYDROCODONE/ACETAMINOPHEN 10/325MG TABLET PO PRN ×3 (04:38→21:44)
[2019-09-25] MEDS: SODIUM CHLORIDE 0.9% INJ 3ML FLUSH IVF SCH ×3 (05:50→21:18)
[2019-09-25] MEDS ORDERED: FAMO20TA8 PO (06:37)
[2019-09-25] MEDS ORDERED: DOCU250C19 PO (06:37)
[2019-09-25] MEDS ORDERED: AMLO10TA80 PO (06:38)
[2019-09-25] MEDS ORDERED: ASPI-1497 PO (06:38)
[2019-09-25 08:57] LABS: BASOPHILS % 0.5 % (0.0-2.0); EOSINOPHILS % 0.9 % (0.0-5.0); HEMATOCRIT. 33.4 % (36.0-48.0); HEMOGLOBIN. 10.8 g/dL (12.0-16.0); LYMPHOCYTES % 22.4 % (20.0-50.0); MEAN CORPUSCULAR HEMOGLOBIN 29.4 pg (28.0-32.0); MEAN CORPUSCULAR VOLUME 90.9 fL (81.0-99.0); MEAN PLATELET VOLUME 8.3 fl (7.4-10.4); MONOCYTES % 11.6 % (2.0-8.0); NEUTROPHILS % 64.6 % (40.0-76.0); PLATELET 288 x1000/uL (130-400); RED BLOOD CELL COUNT 3.67 mill/uL (4.2-5.4); RED CELL DISTRIBUTION WIDTH 13.7 % (11.6-14.6)
[2019-09-25 09:04] LABS: CHLORIDE 111 mEq/L (98-107)
[2019-09-25] MEDS: ALBUTEROL 6.7GM HFA INHALER ORI SCH ×2 (16:30→21:41)
[2019-09-25] MEDS: PREDNISONE 20MG TABLET PO SCH (17:46)
[2019-09-25] MEDS: ENOXAPARIN 40MG/0.4ML SYR SUBCUT SCH (20:26)
[2019-09-26 04:00] VITALS: BP 121/61
[2019-09-26] MEDS: ALBUTEROL 6.7GM HFA INHALER ORI SCH (04:30)
[2019-09-26] MEDS: SODIUM CHLORIDE 0.9% INJ 3ML FLUSH IVF SCH ×3 (05:08→22:00)
[2019-09-26 08:00] VITALS: BP 150/82
[2019-09-26] MEDS: PREDNISONE 20MG TABLET PO SCH ×2 (08:14→17:19)
[2019-09-26] MEDS: HYDROCODONE/ACETAMINOPHEN 10/325MG TABLET PO PRN (10:07)
[2019-09-26 12:00] VITALS: BP 140/87
[2019-09-26 16:00] VITALS: BP 164/89
[2019-09-26 20:00] VITALS: BP 137/69
[2019-09-26] MEDS: ENOXAPARIN 40MG/0.4ML SYR SUBCUT SCH (22:03)
[2019-09-26] MEDS: ACETAMINOPHEN 325MG TABLET PO PRN (22:14)
[2019-09-27] VITALS: BP 133/68
[2019-09-27] MEDS ORDERED: ALBUTEROL (0.083%) 2.5MG/3ML NEB HHN SCH (01:00)
[2019-09-27 04:00] VITALS: BP 133/68
[2019-09-27] MEDS: SODIUM CHLORIDE 0.9% INJ 3ML FLUSH IVF SCH ×2 (06:53→14:37)
[2019-09-27 08:00] VITALS: BP 150/76
[2019-09-27] MEDS: PREDNISONE 20MG TABLET PO SCH ×2 (09:17→17:33)
[2019-09-27 12:00] VITALS: BP 133/68
[2019-09-27 16:00] VITALS: BP 141/75
[2019-09-27 16:31] VITALS: BP 141/75
== END 2019-09-27 17:45 | disposition home or self-care (01) | DRG 193 ==
LOC: ER 16:35 → MICUSO 19:48 → 7WST 09-25 03:18 → 5WST 09-26 09:46
PROVIDERS: ADMIT Internal Medicine; ATTEND Internal Medicine
DX: J18.9 Pneumonia, unspecified organism (principal); J96.00 Acute respiratory failure, unspecified whether with hypoxia or hypercapnia; J44.1 Chronic obstructive pulmonary disease with (acute) exacerbation; E46 Unspecified protein-calorie malnutrition; I69.354 Hemiplegia and hemiparesis following cerebral infarction affecting left non-dominant side; R65.10 Systemic inflammatory response syndrome (SIRS) of non-infectious origin without acute organ dysfunction; J44.0 Chronic obstructive pulmonary disease with (acute) lower respiratory infection; E78.5 Hyperlipidemia, unspecified; E87.6 Hypokalemia; F17.210 Nicotine dependence, cigarettes, uncomplicated; F32.9 Major depressive disorder, single episode, unspecified; I10 Essential (primary) hypertension; M19.90 Unspecified osteoarthritis, unspecified site; Z20.828 Contact with and (suspected) exposure to other viral communicable diseases; E78.00 Pure hypercholesterolemia, unspecified; F41.9 Anxiety disorder, unspecified; M19.011 Primary osteoarthritis, right shoulder; M19.012 Primary osteoarthritis, left shoulder; F12.90 Cannabis use, unspecified, uncomplicated; Z60.2 Problems related to living alone; R26.81 Unsteadiness on feet; Z90.49 Acquired absence of other specified parts of digestive tract; Z90.710 Acquired absence of both cervix and uterus; Z68.24 Body mass index [BMI] 24.0-24.9, adult; Z79.899 Other long term (current) drug therapy; Z88.0 Allergy status to penicillin; Z88.2 Allergy status to sulfonamides; Z88.8 Allergy status to other drugs, medicaments and biological substances; M79.662 Pain in left lower leg
CPT/HCPCS: 36415; 71045; 73030; 73560; 73590; 73620; 73721; 80053; 81003; 83605; 83880; 84145; 84484; 85025; 93005; 93970; 96374; 97116; 97162; 99285; J1650; J1956; J2270; J3480; J7030; J7512; U0003-CS

== ENCOUNTER 2021-11-13 17:20 | Emergency (ER) | payer MEDICARE, MEDICAID ==
[~2021-11-13] VITALS: Ht 152.4 cm; Wt 64.0 kg
[~2021-11-13 17:20] MED LIST changes: +AMLO10TA80 PO; +ASPI-1497 PO; +DOCU250C19 PO; +FAMO20TA8 PO; +LISI40TA13 PO; -LISI40TA4 PO; +MELA3TAB40 PO; -MELA3TAB63 PO; +MIRT-89 PO; -MIRT15TA6 PO
[2021-11-13 17:32] VITALS: BP 149/83
[2021-11-13] MEDS ORDERED: MUPI22OI2 TP (23:51)
[2021-11-13] MEDS ORDERED: CETI-338 PO (23:51)
[2021-11-13] MEDS ORDERED: DOXY100T28 PO (23:51)
== END 2021-11-13 23:52 | disposition home or self-care (01) ==
LOC: ER 17:20
DX: L73.9 Follicular disorder, unspecified (principal); R23.4 Changes in skin texture; I10 Essential (primary) hypertension; J45.909 Unspecified asthma, uncomplicated; J44.9 Chronic obstructive pulmonary disease, unspecified; E78.00 Pure hypercholesterolemia, unspecified; Z86.73 Personal history of transient ischemic attack (TIA), and cerebral infarction without residual deficits; Z90.49 Acquired absence of other specified parts of digestive tract; Z90.710 Acquired absence of both cervix and uterus; Z79.82 Long term (current) use of aspirin; Z88.6 Allergy status to analgesic agent; Z88.2 Allergy status to sulfonamides; Z88.0 Allergy status to penicillin
CPT/HCPCS: 99283

== ENCOUNTER 2022-01-18 08:47 | Inpatient (IN) | payer MEDICARE, MEDICAID ==
[~2022-01-18] VITALS: Ht 165.1 cm; Wt 58.5 kg
[~2022-01-18 08:47] MED LIST changes: +CETI-338 PO; +DOXY100T28 PO; +MUPI22OI2 TP
[2022-01-18 10:40] LABS: BASOPHILS % 0.8 % (0.0-2.0); EOSINOPHILS % 1.5 % (0.0-5.0); HEMOGLOBIN. 13.6 g/dL (12.0-16.0); LYMPHOCYTES % 23.7 % (20.0-50.0); MEAN CORPUSCULAR HEMOGLOBIN 30.4 pg (28.0-32.0); MEAN CORPUSCULAR VOLUME 91.8 fL (81.0-99.0); MEAN PLATELET VOLUME 8.8 fl (7.4-10.4); MONOCYTES % 9.7 % (2.0-8.0); NEUTROPHILS % 64.3 % (40.0-76.0); PLATELET 275 x1000/uL (130-400); RED BLOOD CELL COUNT 4.46 mill/uL (4.2-5.4); RED CELL DISTRIBUTION WIDTH 14.7 % (11.6-14.6)
[2022-01-18 10:48] LABS: CHLORIDE 105 mEq/L (98-107)
[2022-01-18 12:52] LABS: INR 1.1; PROTHROMBIN TIME 11.6 sec (9.6-11.0)
[2022-01-18] MEDS ORDERED: ACETAMINOPHEN 325MG TABLET PO PRN ×2 (13:45)
[2022-01-18] MEDS ORDERED: IPRATROPIUM/ALBUTEROL 0.5-3(2.5)MG/3ML NEB NEB PRN (13:45)
[2022-01-18] MEDS ORDERED: DOCUSATE SODIUM 100MG CAPSULE PO PRN (13:45)
[2022-01-18] MEDS ORDERED: GUAIFENESIN 200MG/10ML SUGAR FREE UDC PO PRN (13:45)
[2022-01-18] MEDS ORDERED: ONDANSETRON HCL 4MG/2ML INJ IV PRN (13:45)
[2022-01-18] MEDS ORDERED: CLONIDINE 0.1MG TABLET PO PRN (13:45)
[2022-01-18 14:00] VITALS: BP 132/82
[2022-01-18 16:00] VITALS: BP 127/65
[2022-01-18 16:07] VITALS: BP 132/82
[2022-01-18] MEDS: ENOXAPARIN 40MG/0.4ML SYR SUBCUT SCH (17:08)
[2022-01-18 20:00] VITALS: BP 122/67
[2022-01-19] VITALS: BP 119/65
[2022-01-19 04:00] VITALS: BP_SYST 124; BP_SYST 129; BP_SYST 131; BP_DIAS 68; BP_DIAS 70; BP_DIAS 76
[2022-01-19 07:02] LABS: BASOPHILS % 0.7 % (0.0-2.0); EOSINOPHILS % 1.5 % (0.0-5.0); HEMATOCRIT. 38.5 % (36.0-48.0); HEMOGLOBIN. 12.7 g/dL (12.0-16.0); LYMPHOCYTES % 45.5 % (20.0-50.0); MEAN CORPUSCULAR HEMOGLOBIN 30.1 pg (28.0-32.0); MEAN CORPUSCULAR VOLUME 90.9 fL (81.0-99.0); MONOCYTES % 13.3 % (2.0-8.0); RED BLOOD CELL COUNT 4.23 mill/uL (4.2-5.4); RED CELL DISTRIBUTION WIDTH 14.3 % (11.6-14.6)
[2022-01-19 08:00] VITALS: BP_SYST 135; BP_SYST 142; BP_SYST 143; BP_DIAS 70; BP_DIAS 76; BP_DIAS 84
[2022-01-19 08:55] LABS: CHLORIDE 106 mEq/L (98-107)
[2022-01-19 09:00] LABS: PHOSPHORUS 2.4 mg/dL (2.5-4.9)
[2022-01-19 10:05] LABS: PLATELET 240 x1000/uL (130-400)
[2022-01-19 12:00] VITALS: BP_SYST 123; BP_SYST 145; BP_SYST 158; BP_DIAS 60; BP_DIAS 85; BP_DIAS 91
[2022-01-19] MEDS: ENOXAPARIN 40MG/0.4ML SYR SUBCUT SCH (14:30)
[2022-01-19 16:00] VITALS: BP 103/73
[2022-01-19 20:00] VITALS: BP 129/72
[2022-01-19] MEDS ORDERED: MAGNESIUM OXIDE 400MG TABLET PO NR (21:15)
[2022-01-19] MEDS ORDERED: POTASSIUM-SODIUM PHOSPHATE POWDER PACKET PO NR (21:15)
[2022-01-19] MEDS: DICLOFENAC SODIUM 1% GEL 50GM TOP SCH (22:00)
[2022-01-19] MEDS: HYDROCODONE/ACETAMINOPHEN 5/325MG TABLET PO PRN (22:17)
[2022-01-20] VITALS: BP 118/78
[2022-01-20 04:00] VITALS: BP 129/72
[2022-01-20 07:14] LABS: BASOPHILS % 1.1 % (0.0-2.0); EOSINOPHILS % 2.3 % (0.0-5.0); HEMATOCRIT. 39.8 % (36.0-48.0); HEMOGLOBIN. 13.2 g/dL (12.0-16.0); LYMPHOCYTES % 45.1 % (20.0-50.0); MEAN CORPUSCULAR HEMOGLOBIN 30.5 pg (28.0-32.0); MEAN CORPUSCULAR VOLUME 91.8 fL (81.0-99.0); MONOCYTES % 9.8 % (2.0-8.0); NEUTROPHILS % 41.7 % (40.0-76.0); PLATELET 259 x1000/uL (130-400); RED BLOOD CELL COUNT 4.33 mill/uL (4.2-5.4); RED CELL DISTRIBUTION WIDTH 14.6 % (11.6-14.6)
[2022-01-20 09:30] VITALS: BP 124/65
[2022-01-20 10:45] LABS: CHLORIDE 112 mEq/L (98-107)
[2022-01-20] MEDS: DICLOFENAC SODIUM 1% GEL 50GM TOP SCH ×4 (10:45→20:33)
[2022-01-20 10:49] LABS: PHOSPHORUS 2.8 mg/dL (2.5-4.9)
[2022-01-20] MEDS: ENOXAPARIN 40MG/0.4ML SYR SUBCUT SCH (14:38)
[2022-01-20] MEDS: HYDROCODONE/ACETAMINOPHEN 5/325MG TABLET PO PRN (14:39)
[2022-01-20 16:00] VITALS: BP 130/74
[2022-01-20] MEDS ORDERED: NALOXONE HCL 0.4MG/ML VIAL IV PRN (17:15)
[2022-01-20 20:00] VITALS: BP 110/64
[2022-01-21] VITALS: BP 137/71
[2022-01-21 04:00] VITALS: BP 125/60
[2022-01-21 06:35] LABS: BASOPHILS % 0.9 % (0.0-2.0); EOSINOPHILS % 2.7 % (0.0-5.0); HEMATOCRIT. 37.7 % (36.0-48.0); HEMOGLOBIN. 12.6 g/dL (12.0-16.0); LYMPHOCYTES % 44.1 % (20.0-50.0); MEAN CORPUSCULAR HEMOGLOBIN 30.5 pg (28.0-32.0); MEAN CORPUSCULAR VOLUME 91.4 fL (81.0-99.0); MEAN PLATELET VOLUME 9.1 fl (7.4-10.4); MONOCYTES % 7.9 % (2.0-8.0); NEUTROPHILS % 44.4 % (40.0-76.0); PLATELET 269 x1000/uL (130-400); RED BLOOD CELL COUNT 4.12 mill/uL (4.2-5.4); RED CELL DISTRIBUTION WIDTH 14.4 % (11.6-14.6)
[2022-01-21 08:00] VITALS: BP 123/83
[2022-01-21 08:27] LABS: CHLORIDE 110 mEq/L (98-107)
[2022-01-21] MEDS: DICLOFENAC SODIUM 1% GEL 50GM TOP SCH ×2 (09:55→13:12)
[2022-01-21] MEDS ORDERED: MAGNESIUM HYDROXIDE 400MG/5ML 30ML UDC PO NR (12:30)
[2022-01-21] MEDS ORDERED: SENN8.6T21 PO (12:50)
[2022-01-21] MEDS ORDERED: POLY119P2 PO (12:50)
[2022-01-21] MEDS: MAGNESIUM/ALUMINUM HYDROXIDE/SIMETHICONE 30ML UDC PO PRN (12:51)
[2022-01-21 14:05] VITALS: BP 123/83
== END 2022-01-21 15:15 | disposition home or self-care (01) | DRG 74 ==
LOC: ER 08:47 → 6WST 13:01 → EDBEDREQTM 13:10 → EDBEDREQ 13:10 → ENRESERV 13:34 → SUPCPDRO 13:42
PROVIDERS: ADMIT Internal Medicine; ATTEND Internal Medicine
PROC: 4A00X4Z Measurement of Central Nervous Electrical Activity, External Approach (ICD-10-PCS; principal; 2022-01-19)
DX: G90.8 Other disorders of autonomic nervous system (principal); F17.210 Nicotine dependence, cigarettes, uncomplicated; J44.9 Chronic obstructive pulmonary disease, unspecified; I10 Essential (primary) hypertension; E78.00 Pure hypercholesterolemia, unspecified; M51.16 Intervertebral disc disorders with radiculopathy, lumbar region; M48.07 Spinal stenosis, lumbosacral region; M47.817 Spondylosis without myelopathy or radiculopathy, lumbosacral region; G89.29 Other chronic pain; Z88.0 Allergy status to penicillin; Z88.2 Allergy status to sulfonamides; Z90.49 Acquired absence of other specified parts of digestive tract; Z90.710 Acquired absence of both cervix and uterus; Z79.899 Other long term (current) drug therapy
CPT/HCPCS: 36415; 71045; 72110; 72148; 80048; 80053; 83735; 84100; 84484; 85025; 93005; 93306; 93880; 95816; 97116; 97162; 97166; 99285; J1650